=== PATIENT | female | born 1985 | race Caucasian/White ===

== ENCOUNTER 2020-01-13 11:20 | Inpatient (IN) ==
--- OUTSIDE RECORDS SUMMARY | 2020-01-13 11:34 | External Medical Summary | Continuity of Care Document ---
:1985 Author Name Geno Wiseman, Provider Address Unavailable Unavailable , Care Team Providers Name Role Phone Unavailable Unavailable Unavailable REFERRED, SELF Unavailable Unavailable Unavailable Unavailable Unavailable Problems Active medical history not documented Allergies and Adverse Reactions Allergy history not documented Medications Medications not documented Procedures Procedures not documented Immunizations Immunizations not documented Plan of Treatment Planned Observations Planned Goals not documented Results No Known Results Results not documented Encounters Appointment; [facility], Nursing [facility] 25-Aug-2018 13:45 Encounter Diagnosis: Problem not documented Appointment; [place] [id number], Nursing Station 23-Aug-2018 13:00 Encounter Diagnosis: Problem not documented Appointment; Aura Peck DO 03-Jun-2018 11:00 Encounter Diagnosis: Problem not documented
[2020-01-13] MEDS ORDERED: OXYTOCIN 30 UNITS/500 ML BAG IV PRN ×2 (12:00→13:02)
[2020-01-13] MEDS: LACTATED RINGER'S 1,000 ML IV PRN ×3 (12:44→20:49)
[2020-01-13 12:56] LABS: Hematocrit (blood only) 31.7 % (37-47); Hemoglobin 11.1 g/dL (12.0-16.0); Mean Corpuscular Volume 97.2 fL (80-100); Mean Platelet Volume 12.5 fL (7.4-10.4); Platelet Count 121 K/uL (130-400); Platelet Estimate Decreased (Normal); RDW Coefficient of Variation 13.1 % (11.5-14.5); RDW Standard Deviation 45.7 fL (36.4-46.3); Red Blood Count 3.26 M/uL (4.2-5.4); White Blood Count 5.91 K/uL (4.8-10.8)
[2020-01-13] MEDS ORDERED: fentaNYL 2MCG/ML ROPIV 1.25MG/ML 100 ML BAG EPI ONE (15:39)
[2020-01-13] MEDS ORDERED: ePHEDrine sulfate 50 MG/ML AMP ONE (15:39)
[2020-01-13] MEDS ORDERED: fentaNYL citrate 100 MCG/2 ML VIAL ONE (15:39)
[2020-01-13] MEDS ORDERED: BUPIVACAINE 0.25% 30 ML VIAL ONE (15:39)
--- NOTE | 2020-01-13 16:58 | Anesthesiology Consultation ---
Date of Service January 13, 2020 Assessment & Plan (1) Encounter for pre-operative examination: Chart Review Chart Review: Patient NOT seen in Pre Admission Testing and Acceptable Risk for Labor Epidural Consults Requested none ASA ASA2 Proposed Anesthesia Anesthesia Type: Labor Epidural Risk / Benefits Reviewed With: PT / POA / Parent / Guardian, Accepts Plan and Informed Consent Obtained History Height/Weight Height: 5 ft 4 in Weight: 68.039 kg Allergies Allergy/AdvReac Type Severity Reaction Status Date / Time No Known Allergies Allergy Verified 01/13/20 11:43 Medications Home Medications Medication Instructions Recorded Confirmed Last Taken PNV cmb#95-ferrous fumarate-FA 1 tab PO DAILY 01/13/20 01/13/20 01/12/20 20:00 [] docosahexaenoic acid [DHA 1 mg PO DAILY 01/13/20 01/13/20 01/12/20 20:00 Algal-900] ferrous sulfate [iron] 325 mg PO DAILY 01/13/20 01/13/20 01/12/20 20:00 Active Medications Generic Name Dose Route Start Last Admin Trade Name Tiff PRN Reason Stop Dose Admin Lactated Ringer's 1,000 mls @ 125 mls/hr 01/13/20 12:00 01/13/20 16:52 Lr IV 01/15/20 11:59 125 mls/hr .Q8H PRN Infusion L&D Protocol Protocol Oxytocin 30 units in 500 mls @ 6 mls/hr 01/13/20 13:02 01/13/20 14:15 Pitocin IV 01/15/20 13:01 0.36 units/hr .Q24H PRN 6 mls/hr Labor Induction/Augmentation Titration Protocol 0.36 UNITS/HR NPO Date Last Intake of Fluids: 01/13/20 Time Last Intake of Fluids: 15:00 Date Last Intake of Solids: 01/13/20 Time Last Intake of Solids: 08:30 Past Medical History Medical History No known health problems Exercise / Class Metabolic Activity II 4-5 Yardwork/Stairs/Walk up hill Past Family History Family History Mother Family history of diabetes mellitus Past Surgical History Surgical History H/O wisdom tooth extraction Past Anesthesia History No Hx of Anesthesia Complications and No Family Hx of Anesthesia Complications History of PONV No Hx of PONV and No Hx of Motion Sickness Social History Smoking Status: Never smoker Hx Alcohol Use: No Hx Substance Use: No substance use type: does not use Physical Exam Vital Signs Last Vital Signs Temp 36.8 C 01/13/20 14:52 Pulse 72 01/13/20 16:55 Resp 16 01/13/20 14:52 BP 101/56 L 01/13/20 16:55 Pulse Ox 100 01/13/20 16:52 ENMT Mouth: no dentition abnormality Thyromental Distance: > or= 3.5 Finger Breadths Mallampati Class: II Neck normal visual inspection Respiratory normal respiratory effort Auscultation: lungs clear to auscultation bilaterally Cardiovascular Rate/Rhythm: regular rate and regular rhythm Psychiatric Orientation: alert Testing Laboratory Results 01/13/20 12:21
[2020-01-13] MEDS ORDERED: PROMETHAZINE HCL 6.25 MG in SODIUM CHLORIDE 0.9% 50 ML IV PRN (16:59)
[2020-01-13] MEDS ORDERED: ONDANSETRON INJ 2 MG/ML 2 ML VIAL IV PRN (16:59)
[2020-01-13] MEDS ORDERED: fentaNYL 2MCG/ML ROPIV 1.25MG/ML 100 ML BAG EPI PRN (16:59)
[2020-01-14] MEDS ORDERED: SUPERCREAM 0.870% 15 GM JAR EXT PRN (01:27)
[2020-01-14] MEDS ORDERED: ACETAMINOPHEN 325 MG TAB PO PRN (01:27)
[2020-01-14] MEDS ORDERED: OXYCODONE/ACETAMINOPHEN 5mg/325mg TAB PO PRN (01:27)
[2020-01-14] MEDS ORDERED: ACETAMINOPHEN W/CODEINE #3 1 TAB PO PRN (01:27)
[2020-01-14] MEDS ORDERED: OXYTOCIN 30 UNITS/500 ML BAG IV PRN (01:27)
[2020-01-14] MEDS ORDERED: BENZOCAINE 20% AER SPR 82.5 GM CAN EXT PRN (01:27)
[2020-01-14] MEDS ORDERED: HYDROCORTISONE ACETATE 25 MG SUPP PR PRN (01:27)
[2020-01-14] MEDS ORDERED: DIPHTHERIA/TETANUS/PERTUSSIS 0.5 ML SYR/VIAL IM ONE (01:27)
--- NOTE | 2020-01-14 02:40 | Delivery Summary ---
DATE OF DELIVERY: 01/14/2020 She is a 4, para 3, blood type is O positive, vaginal beta strep negative. She has a history of having infants over 9 pounds. Because of this, after she hit 39+ weeks, we stripped her membranes several times in the office, once earlier in the week, once on , and then she came in Thursday, she was ann and she was about 4 cm. She was sent up in labor. After she arrived on labor floor, she was augmented with IV Pitocin. She developed a real good contraction pattern and eventually delivered a live male via direct occiput anterior position over an intact perineum. Infant was suctioned through the mouth and the nose. She had a nuchal cord which was reduced over the head prior to delivery of the body. Body was delivered without difficulty. We then let the cord pulse for several minutes. After about 3 minutes, we clamped the cord, the father cut the cord. I collected cord blood. With IV Pitocin running, we removed the placenta intact. There was a large inclusion cyst at the vaginal opening at about 5 o'clock. I dissected this out with the scissors and then sewed it with a running 3-0 Vicryl. Following this, vag exam including rectovaginal examination revealed no hematoma formation or sponges in the vagina. Estimated blood loss was 300 mL Apgars deferred to the nurses. I attest to the content of the Intraoperative Record and any orders documented therein. Any exceptions are noted below. CHANDLER
[2020-01-14] MEDS: PRENATAL VITAMIN 1 TAB PO SCH (09:11)
[2020-01-14] MEDS: DOCUSATE SODIUM 100 MG CAP PO SCH ×2 (09:11→21:05)
[2020-01-14] MEDS: IBUPROFEN 600 MG TAB PO PRN ×2 (09:11→19:40)
--- NOTE | 2020-01-14 10:11 | Anesthesiology Progress Note ---
Date of Service January 14, 2020 Anesthesia Post Procedure Vital Signs Vital Signs: Temp Pulse Pulse Resp BP BP Pulse Ox 01/14/20 07:13 76 140/66 01/14/20 07:00 36.8 C 76 16 140/66 01/14/20 04:09 36.9 C 18 01/14/20 03:37 81 108/60 01/14/20 03:30 36.9 C 18 01/14/20 03:17 82 111/63 01/14/20 02:57 78 113/65 01/14/20 02:37 79 108/64 01/14/20 02:30 18 01/14/20 02:26 85 118/70 01/14/20 02:16 80 119/73 01/14/20 02:15 18 01/14/20 02:06 81 124/73 01/14/20 02:00 18 01/14/20 01:56 81 123/73 01/14/20 01:46 88 122/76 01/14/20 01:45 18 01/14/20 01:36 92 H 124/68 01/14/20 01:31 105 H 120/64 01/14/20 01:30 36.9 C 18 01/14/20 01:21 89 97 01/14/20 01:16 89 99 01/14/20 01:11 114 H 73 L 01/14/20 01:10 113 H 125/57 L 01/14/20 01:06 114 H 100 01/14/20 01:01 144 H 18 100 01/14/20 00:56 115 H 100 01/14/20 00:53 100 H 115/71 01/14/20 00:51 101 H 100 01/14/20 00:46 90 18 100 01/14/20 00:41 107 H 99 01/14/20 00:39 105 H 145/91 H 01/14/20 00:36 142 H 99 01/14/20 00:31 92 H 18 98 01/14/20 00:26 95 H 99 01/14/20 00:24 84 115/68 01/14/20 00:21 85 99 01/14/20 00:16 90 100 01/14/20 00:15 18 01/14/20 00:11 85 100 01/14/20 00:09 76 124/72 01/14/20 00:06 80 100 04/18/20 00:01 37.0 C 86 18 100 01/13/20 23:56 96 H 100 01/13/20 23:53 89 117/78 01/13/20 23:51 87 100 01/13/20 23:46 93 H 100 01/13/20 23:41 86 100 01/13/20 23:38 85 125/68 01/13/20 23:36 97 H 99 01/13/20 23:35 18 01/13/20 23:31 92 H 100 01/13/20 23:26 77 100 01/13/20 23:24 77 104/62 01/13/20 23:21 77 100 01/13/20 23:16 76 100 01/13/20 23:11 79 99 01/13/20 23:09 78 122/76 01/13/20 23:06 73 100 01/13/20 23:01 36.7 C 93 H 18 98 01/13/20 22:56 81 99 01/13/20 22:54 89 111/62 01/13/20 22:51 91 H 99 01/13/20 22:50 18 01/13/20 22:46 79 99 01/13/20 22:41 81 98 01/13/20 22:38 81 120/66 01/13/20 22:36 88 100 01/13/20 22:31 79 99 01/13/20 22:29 18 01/13/20 22:26 72 98 01/13/20 22:23 75 119/68 01/13/20 22:21 77 100 01/13/20 22:16 81 100 01/13/20 22:11 92 H 100 01/13/20 22:08 80 114/72 01/13/20 22:06 73 100 01/13/20 22:01 76 100 01/13/20 21:56 74 100 01/13/20 21:53 74 116/70 01/13/20 21:51 82 99 01/13/20 21:46 77 99 01/13/20 21:41 76 100 01/13/20 21:39 77 117/68 01/13/20 21:36 87 100 01/13/20 21:31 81 100 01/13/20 21:26 81 100 01/13/20 21:24 80 116/71 01/13/20 21:21 91 H 100 01/13/20 21:18 18 01/13/20 21:16 87 100 01/13/20 21:11 73 98 01/13/20 21:08 63 95/51 L 01/13/20 21:06 69 99 01/13/20 21:01 71 99 01/13/20 20:59 36.5 C 01/13/20 20:56 76 98 01/13/20 20:54 68 105/59 L 01/13/20 20:52 18 01/13/20 20:51 65 98 01/13/20 20:46 75 98 01/13/20 20:41 83 98 01/13/20 20:38 98 H 106/71 01/13/20 20:36 112 H 98 01/13/20 20:31 96 H 18 98 01/13/20 20:26 94 H 98 01/13/20 20:25 62 114/67 01/13/20 20:21 93 H 98 01/13/20 20:16 70 18 99 01/13/20 20:11 82 98 01/13/20 20:08 89 112/75 01/13/20 20:07 84 98 01/13/20 20:01 85 18 99 01/13/20 19:57 76 98 01/13/20 19:53 65 102/58 L 01/13/20 19:52 80 97 01/13/20 19:47 69 96 01/13/20 19:45 18 01/13/20 19:42 87 99 01/13/20 19:38 83 105/62 01/13/20 19:37 73 97 01/13/20 19:32 94 H 18 98 01/13/20 19:26 65 97 01/13/20 19:23 92 H 110/62 01/13/20 19:22 68 96 01/13/20 19:19 36.6 C 18 01/13/20 19:17 68 98 01/13/20 19:12 66 99 01/13/20 19:08 68 108/63 01/13/20 19:06 70 100 01/13/20 19:01 97 H 98 01/13/20 19:00 18 01/13/20 18:56 64 96 01/13/20 18:54 71 111/63 01/13/20 18:52 101 H 98 01/13/20 18:46 89 98 01/13/20 18:45 16 01/13/20 18:41 102 H 99 01/13/20 18:39 84 113/58 L 01/13/20 18:37 67 100 01/13/20 18:32 66 100 01/13/20 18:30 16 01/13/20 18:27 74 100 01/13/20 18:24 77 100/68 01/13/20 18:22 79 100 01/13/20 18:17 66 100 01/13/20 18:15 16 01/13/20 18:12 76 100 01/13/20 18:08 60 119/59 L 01/13/20 18:07 74 100 01/13/20 18:03 65 114/63 01/13/20 18:02 68 100 01/13/20 18:00 67 16 107/58 L 01/13/20 17:57 68 100 01/13/20 17:54 68 117/64 01/13/20 17:52 36.8 C 69 16 100 01/13/20 17:49 74 121/65 01/13/20 17:47 63 100 01/13/20 17:45 70 104/57 L 01/13/20 17:42 64 100 01/13/20 17:39 68 107/56 L 01/13/20 17:37 69 99 01/13/20 17:35 64 100/55 L 01/13/20 17:34 67 116/62 01/13/20 17:32 66 100 01/13/20 17:31 63 180/85 H 01/13/20 17:30 16 01/13/20 17:29 62 108/62 01/13/20 17:27 67 102/59 L 100 01/13/20 17:25 64 96/53 L 01/13/20 17:23 61 104/56 L 01/13/20 17:22 63 100 01/13/20 17:21 68 108/56 L 01/13/20 17:19 67 101/57 L 01/13/20 17:17 77 105/58 L 100 01/13/20 17:15 66 18 100/57 L 01/13/20 17:13 64 99/53 L 01/13/20 17:12 65 100 01/13/20 17:11 64 102/58 L 01/13/20 17:09 64 99/54 L 01/13/20 17:07 64 100/54 L 100 01/13/20 17:05 65 100/55 L 01/13/20 17:03 66 100/54 L 01/13/20 17:02 69 100 01/13/20 17:01 70 103/57 L 01/13/20 17:00 16 01/13/20 16:59 71 105/55 L 01/13/20 16:57 70 103/58 L 90 01/13/20 16:55 72 16 101/56 L 01/13/20 16:53 69 100/54 L 01/13/20 16:52 72 100 01/13/20 16:51 73 127/58 L 01/13/20 16:47 70 100 01/13/20 16:46 77 127/78 01/13/20 16:42 72 100 01/13/20 16:37 67 100 01/13/20 16:32 75 100 01/13/20 16:27 70 100 01/13/20 16:22 69 100 01/13/20 15:47 74 112/70 01/13/20 14:53 73 129/61 01/13/20 14:52 36.8 C 16 01/13/20 14:51 86 213/113 H 01/13/20 13:46 86 115/78 01/13/20 13:13 78 115/76 01/13/20 11:41 36.9 C 85 16 117/72 Notes Mental Status: alert / awake / arousable Patient Amnestic to Procedure: Yes Nausea / Vomiting: adequately controlled Pain: adequately controlled Airway Patency, RR, SpO2: stable & adequate BP & HR: stable & adequate Hydration State: stable & adequate Neuraxial Anesthesia: was administered (epidural pulled; catheter tip intact) and sensory block resolved Anesthetic Complications: no major complications apparent and Pt Satisfied with anesthetic care
[2020-01-15 06:29] LABS: Hematocrit (blood only) 26.3 % (37-47); Mean Corpuscular Hemoglobin 34.1 pg (25-34); Mean Corpuscular Hgb Conc 34.2 g/dL (32-36); Mean Corpuscular Volume 99.6 fL (80-100); Mean Platelet Volume 11.8 fL (7.4-10.4); Platelet Count 117 K/uL (130-400); RDW Coefficient of Variation 13.3 % (11.5-14.5); RDW Standard Deviation 48.7 fL (36.4-46.3); Red Blood Count 2.64 M/uL (4.2-5.4); White Blood Count 8.57 K/uL (4.8-10.8)
[2020-01-15] MEDS: IBUPROFEN 600 MG TAB PO PRN (08:11)
[2020-01-15] MEDS: DOCUSATE SODIUM 100 MG CAP PO SCH (08:11)
[2020-01-15] MEDS: PRENATAL VITAMIN 1 TAB PO SCH (08:11)
--- NOTE | 2020-01-15 10:17 | Obstetrical Progress Note ---
Date of Service January 15, 2020 Assessment & Plan Admission and Anticipated Discharge Date Admission Date: January 13, 2020 Physical Exam Physical Exam: abdomen soft abdomen soft and non tender no calf tenderness vaginal bleeding scant hgb 9.0 ambulating well Results & Data ([facility]) Vital Signs (Past 12 Hours) Vital Signs Temp Pulse Resp BP Pulse Ox 01/15/20 08:10 36.7 C 73 18 121/74 97 01/14/20 23:20 36.7 C 81 18 104/66
[2020-01-15] MEDS ORDERED: bisacodyL 5 MG TABEC PO SCH (20:00)
[2020-01-16] MEDS ORDERED: bisacodyL 10 MG SUPP PR PRN (07:00)
== END 2020-01-15 11:28 | disposition home or self-care (01) | DRG 807 ==
LOC: OPB 11:20 → 4S1 11:21 → 4S2 01-14 15:40

== ENCOUNTER 2022-08-12 19:17 | Inpatient (IN) ==
[2022-08-12] MEDS ORDERED: LIDOCAINE 1% LOCAL 20 ML VIAL INFIL PRN (19:45)
[2022-08-12] MEDS ORDERED: OXYTOCIN 30 UNITS/500 ML BAG IV PRN (19:45)
[2022-08-12 20:12] LABS: Hematocrit (blood only) 30.1 % (34.1-44.9); Hemoglobin 10.6 g/dl (12.0-16.0); Mean Corpuscular Hemoglobin 34.2 pg (25.0-34.0); Mean Corpuscular Hgb Conc 35.2 g/dL (32.0-36.0); Mean Corpuscular Volume 97.1 fL (80.0-100.0); Mean Platelet Volume 12.3 fL (9.4-12.3); Platelet Count 128 K/uL (130-400); RDW Coefficient of Variation 12.6 % (11.5-14.5); RDW Standard Deviation 44.5 fL (36.4-46.3); White Blood Count 7.25 K/ul (4.8-10.8)
[2022-08-12] MEDS ORDERED: miSOPROStoL 50 MCG TAB PO ONE (20:51)
[2022-08-13] MEDS ORDERED: miSOPROStoL 50 MCG TAB ONE (01:06)
[2022-08-13] MEDS: LACTATED RINGER'S 1,000 ML IV PRN ×3 (01:36→08:08)
[2022-08-13] MEDS ORDERED: TERBUTALINE SULFATE 1 MG/ML VIAL SQ ONE (01:57)
[2022-08-13] MEDS ORDERED: TERBUTALINE SULFATE 1 MG/ML VIAL ONE (02:04)
[2022-08-13] MEDS ORDERED: miSOPROStoL 50 MCG TAB PO SCH (04:00)
[2022-08-13] MEDS ORDERED: OXYTOCIN 30 UNITS/500 ML BAG IV PRN ×2 (05:46→12:51)
[2022-08-13] MEDS ORDERED: fentaNYL citrate 100 MCG/2 ML VIAL ONE (07:23)
[2022-08-13] MEDS ORDERED: SODIUM CHLORIDE 0.9% INJ 10 ML VIAL ONE (07:23)
[2022-08-13] MEDS ORDERED: ePHEDrine sulfate 50 MG/ML AMP ONE (07:23)
[2022-08-13] MEDS ORDERED: BUPIVACAINE 0.25% 30 ML VIAL ONE (07:23)
[2022-08-13] MEDS ORDERED: fentaNYL 2MCG/ML ROPIVACAINE 1.25MG/ML 100 ML BAG EPI ONE (07:24)
[2022-08-13] MEDS ORDERED: LIDOCAINE 2%/EPINEPHRINE 1:200,000 20 ML SDV ONE (07:24)
[2022-08-13] MEDS ORDERED: diphenhydrAMINE 50 MG/ML VIAL IV PRN (08:13)
[2022-08-13] MEDS ORDERED: ONDANSETRON INJ 2 MG/ML 2 ML VIAL IV PRN (08:13)
[2022-08-13] MEDS ORDERED: fentaNYL 2MCG/ML ROPIVACAINE 1.25MG/ML 100 ML BAG EPI PRN (08:13)
[2022-08-13] MEDS ORDERED: ePHEDrine sulfate 50 MG/ML AMP IV PRN (08:13)
[2022-08-13] MEDS ORDERED: NALOXONE HCL 0.4 MG/1 ML VIAL/CARP IV PRN (08:13)
[2022-08-13] MEDS ORDERED: NALOXONE HCL 1 MG in SODIUM CHLORIDE 0.9% 1000ML 1,000 ML IV PRN (08:13)
[2022-08-13] MEDS ORDERED: NALBUPHINE HCL INJ 10 MG/ML AMP IV PRN (08:13)
--- NOTE | 2022-08-13 08:18 | Anesthesia Procedure Note ---
Anesthesia Procedure Note Neuraxial Placement Note Date of procedure: 08/13/22 Consent: Risk / Benefits Reviewed With: PT / POA / Parent / Guardian Monitors attached: Blood Pressure and Pulse Oximetry Time out completed: Yes Prehydrate: Lactated ringers Premedication: None Position: Sitting Surgical Prep: Hand hygeine: Soap and water Equipment/Supplies: Cap, Mask, Sterile gown, Sterile gloves, Sterile drapes and Sterile procedures used Skin prep: Duraprep Site: Midline Local medication: 1% Lidocaine (ml) (5) Neuraxial placement technique: Epidural Needle: 17g X 3.5 inch Tuohy Ultrasound Guidance: Ultrasound used: No Test dose: Other (2% lido with epi 2.5 cc) Anesthetic used: 0.25% Bupivicaine (ml) (10) Parasthesias: No CSF: No Blood: No Attempts: 1 Post-Procedure: Pt hemodynamically stable, Pt tolerates well and No complication
[2022-08-13] MEDS ORDERED: HYDROCORTISONE ACETATE 25 MG SUPP PR PRN (12:51)
[2022-08-13] MEDS ORDERED: DIPHTHERIA/TETANUS/PERTUSSIS 0.5 ML SYR/VIAL IM ONE (12:51)
[2022-08-13] MEDS ORDERED: BENZOCAINE 20% AER SPR 82.5 GM CAN EXT PRN (12:51)
[2022-08-13] MEDS ORDERED: miSOPROStoL 200 MCG TAB PR ONE (12:51)
[2022-08-13] MEDS ORDERED: bisacodyL 10 MG SUPP PR PRN (12:51)
[2022-08-13] MEDS ORDERED: ACETAMINOPHEN W/CODEINE #3 1 TAB PO PRN (12:51)
[2022-08-13] MEDS ORDERED: ACETAMINOPHEN 325 MG TAB PO PRN (12:51)
[2022-08-13] MEDS ORDERED: oxyCODONE/ACETAMINOPHEN 5mg/325mg TAB PO PRN (12:51)
[2022-08-13] MEDS ORDERED: METHYLERGONOVINE MALEATE 0.2 MG/ML AMP IM ONE (12:51)
--- NOTE | 2022-08-13 13:45 | Anesthesia Procedure Note ---
Date of Service August 13, 2022 Anesthesia Post Epidural Note Vital Signs Vital Signs: Temp Pulse Resp BP Pulse Ox 98.8 F 96 H 18 129/74 100 08/13/22 11:00 08/13/22 13:30 08/13/22 12:30 08/13/22 13:30 08/13/22 12:40 Pain Intensity Abdomen: Pain Intensity: 5 Notes Mental Status: alert / awake / arousable and participated in evaluation Nausea / Vomiting: adequately controlled Pain: adequately controlled Airway Patency, RR, SpO2: stable & adequate BP & HR: stable & adequate Hydration State: stable & adequate Neuraxial Anesthesia: was administered and sensory block is resolving Anesthetic Complications: no major complications apparent and Pt Satisfied with anesthetic care Epidural: Removed without complications and With tip intact
--- NOTE | 2022-08-13 15:35 | Operative Report (OR) ---
DATE OF PROCEDURE: 08/13/2022 DELIVERY NOTE: She is a 5, para 4, blood type is O positive, group B strep negative. was complicated by macrosomia and polyhydramnios. She received several ultrasounds at [facility], level 3 ultrasounds, and was diagnosed with persistent polyhydramnios. Followed in our office getting an ultrasound once a week. Fluid continued to remain polyhydramnios even the last ultrasound that she had. She did have one NST prior to delivery, which of course, was normal brought in at 39 weeks and a day for induction, given p.o. Cytotec. Then 4 hours later another dose of p.o. Cytotec, had an episode of frequent contractions with decels, given terbutaline. They resolved spontaneously. About 5 hours later, she was started on Pitocin. Pitocin was gradually increased. She developed good pattern, pain started to increase. She requested to receive epidural anesthesia from which she obtained good pain relief. When she was about 5 cm, membranes were ruptured surgically. Fluid at this time appeared clear. We continued on the Pitocin, went to full dilatation, and small anterior lip, which we held back, she pushed out a live female via direct occiput anterior position over an intact perineum. Nuchal cord x1, which was reduced over the head. Cord was allowed to pulse for 1 minute, then it was clamped, cut by the father. Cord blood was taken. With IV Pitocin running, the placenta was removed intact. We also used IM Methergine and 800 mcg of rectal Cytotec. Perineum was intact. Uterus contracted nicely. Estimated blood loss was 300 mL Job ID: [id number] [facility]
[2022-08-13] MEDS: IBUPROFEN 600 MG TAB PO PRN (19:14)
[2022-08-13] MEDS: DOCUSATE SODIUM 100 MG CAP PO SCH (20:57)
[2022-08-14] MEDS: IBUPROFEN 600 MG TAB PO PRN ×4 (01:33→12:36)
[2022-08-14 06:23] LABS: Hematocrit (blood only) 28.6 % (34.1-44.9); Hemoglobin 9.9 g/dl (12.0-16.0); Mean Corpuscular Hemoglobin 34.1 pg (25.0-34.0); Mean Corpuscular Hgb Conc 34.6 g/dL (32.0-36.0); Mean Corpuscular Volume 98.6 fL (80.0-100.0); Mean Platelet Volume 12.5 fL (9.4-12.3); Platelet Count 112 K/uL (130-400); RDW Coefficient of Variation 12.7 % (11.5-14.5); RDW Standard Deviation 45.3 fL (36.4-46.3); White Blood Count 7.93 K/ul (4.8-10.8)
[2022-08-14] MEDS: DOCUSATE SODIUM 100 MG CAP PO SCH (07:56)
[2022-08-14] MEDS ORDERED: PRENATAL VITAMIN 1 TAB PO SCH (08:00)
--- NOTE | 2022-08-14 09:22 | Obstetrical Progress Note ---
Date of Service August 14, 2022 Assessment & Plan Admission and Anticipated Discharge Date Admission Date: August 12, 2022 Subjective abdomen soft and non tender no calf tenderness ambulating well pain in tail bone vaginal bleeding scant hgb 9.9 Results & Data ([facility]) Vital Signs (Past 12 Hours) Vital Signs Temp Pulse Resp BP Pulse Ox O2 Del Method 08/14/22 07:00 36.5 C 76 18 118/76 99 Room Air 08/14/22 03:30 36.4 C L 74 18 107/71 98 Room Air 08/14/22 00:45 36.5 C 69 16 107/66 97 Room Air
[2022-08-14] MEDS ORDERED: bisacodyL 5 MG TABEC PO SCH (20:00)
== END 2022-08-14 13:40 | disposition home or self-care (01) | DRG 807 ==
LOC: 4S1 19:17 → 4E2 08-13 15:25